=== PATIENT | male | born 1965 | race Caucasian/White ===

== ENCOUNTER 2020-03-22 13:26 | Outpatient (CLI) | payer OTHER, SELFPAY ==
[~2020-03-22 13:26] MED LIST: Iopamidol 370 76% 100 ML VIAL ONE
--- NOTE | 2020-03-22 14:59 | CT ---
EXAM: CT of the chest with contrast CT of the abdomen and pelvis with contrast HISTORY: Anal cancer COMPARISON: 05/20/2016 TECHNIQUE: 1. Multiple contiguous axial images were obtained in a CT the chest with contrast. Coronal and sagitt al reformats were performed. 2. Multiple contiguous axial images were obtained and a CT of the abdomen and pelvis with contrast. O ral contrast was administered. Coronal and sagittal reformats were performed. FINDINGS: CT CHEST: HEART: Normal in size without focal cardiac abnormality MEDIASTINUM: No hilar or mediastinal lymphadenopathy. LUNGS: No focal infiltrates, nodules, or masses. PLEURAL SPACE: No pneumothorax or pleural effusion. CHEST WALL SOFT TISSUES: There are prominent bilateral axillary lymph nodes measuring up to 2.[address] ABDOMEN/PELVIS: ABDOMEN: LIVER: within normal limits. BILE DUCTS: Normal caliber. GALLBLADDER: No calcified gallstones. Normal caliber wall. PANCREAS: within normal limits. SPLEEN: within normal limits. ADRENALS: within normal limits. KIDNEYS: Nonobstructing right renal calcifications measuring up to 3 mm in size. PELVIS: REPRODUCTIVE ORGANS: No pelvic masses. URETERS: within normal limits. BLADDER: within normal limits. PERITONEUM: No ascites or free air, no fluid collection. BOWEL: Normal caliber. Normal appendix. Air is seen in the perirectal soft tissues. This appears to b e slightly posterior to the trajectory of the rectum and anus. MESENTERY AND RETROPERITONEUM: No enlarged mesenteric or retroperitoneal lymph nodes. VESSELS: Normal. ABDOMINAL WALL: 3.5 cm left inguinal hernia containing sigmoid colon. There are prominent inguinal ly mph nodes measuring up to 3.2 cm in size. The patient appears to have a penile piercing. OSSEOUS STRUCTURES: Degenerative changes in the spine. IMPRESSION: 1. Nonspecific prominent axillary and inguinal lymph nodes 2. Left inguinal hernia 3. Nonobstructing right renal calcifications 4. Questionable air in the perianal soft tissues that may be outside of the enteric canal.
== END 2020-03-22 13:27 | disposition home or self-care (01) ==
LOC: BICCT 13:26
PROVIDERS: ATTEND Internal Medicine Hematology & Oncology
DX: C21.1 Malignant neoplasm of anal canal (principal); K40.90 Unilateral inguinal hernia, without obstruction or gangrene, not specified as recurrent; N20.0 Calculus of kidney
CPT/HCPCS: 71260; 74177

== ENCOUNTER 2020-04-05 04:53 | Outpatient (CLI) | payer OTHER, SELFPAY ==
[2020-04-05 14:43] LABS: #Basophils 0.1 thou/uL (0.0-0.2); #Eosinphils 0.5 thou/uL (0.0-0.7); #Lymphocytes 3.8 thou/uL (1.20-3.40); #Monocytes 1.3 thou/uL (0.11-0.59); #Neutrophils 9.4 thou/uL (1.40-6.50); %Eosinophils 3.2 % (0.0-10.0); %Lymphocytes 25.2 % (21.0-51.0); %Monocytes 8.4 % (0.0-10.0); %Neutrophils 62.3 % (42.0-75.0); Hemoglobin 10.4 g/dL (14.0-18.0); Mean Corpuscular HGB CONC 31.9 g/dL (32.0-36.0); Mean Corpuscular Hemoglobin 26.2 pg (27.0-31.0); Mean Corpuscular Volume 82.1 fL (78.0-98.0); Platelet Count 619 thou/uL (130-400); RBC Distribution Width 13.9 % (11.5-14.5); Red Blood Cell (RBC) Count 3.97 mill/uL (4.70-6.10); White Blood Cell (WBC) Count 15.2 thou/uL (4.8-10.8)
[2020-04-05 15:35] LABS: Anion Gap 16 mmol/L (10-20); BUN (Urea Nitrogen) 18 mg/dL (8.4-25.7); Calc. Creatinine Clearance 0 mL/min (70-130); Calcium 9.3 mg/dL (7.8-10.44); Carbon Dioxide 25 mmol/L (22-29); Chloride 101 mmol/L (98-107); Estimated GFR-MDRD 73; Glucose 99 mg/dL (70-105); Potassium 4.7 mmol/L (3.5-5.1); Sodium 137 mmol/L (136-145)
[2020-04-06 14:01] LABS: SARS-CoV-2 MS2 Positive; SARS-CoV-2 N Gene Negative; SARS-CoV-2 S Gene Negative; SARS-CoV-2 orf1ab Negative
== END 2020-04-05 04:54 | disposition home or self-care (01) ==
LOC: LABBT 04:53
PROVIDERS: ATTEND Surgery
DX: Z01.812 Encounter for preprocedural laboratory examination (principal); Z11.59 Encounter for screening for other viral diseases; C21.0 Malignant neoplasm of anus, unspecified; K40.90 Unilateral inguinal hernia, without obstruction or gangrene, not specified as recurrent
CPT/HCPCS: 80048; 85025; 87635; U0003

== ENCOUNTER 2020-04-08 10:06 | Day surgery (SDC) | payer SELFPAY ==
[2020-04-02 11:54] VITALS: BMI 26.4
[2020-04-08] MEDS ORDERED: Bupivacaine 0.25% HCL 30 ML VIAL ONE ×2 (10:49→13:24)
[2020-04-08] MEDS ORDERED: Lidocaine 1% w/Epinephrine 1:100K 20 ML VIAL ONE (10:49)
[2020-04-08] MEDS ORDERED: Sodium Chloride 0.9% 0 ML ONE (10:49)
[2020-04-08] MEDS ORDERED: Acetaminophen 500 MG TAB ONE (11:01)
[2020-04-08] MEDS ORDERED: Midazolam HCl 2 mg/2 ml Vial ONE (11:45)
[2020-04-08] MEDS ORDERED: Propofol 500 MG/50 ML VIAL ONE (11:52)
[2020-04-08] MEDS ORDERED: Fentanyl 100 MCG/2 ML VIAL ONE ×2 (11:52→12:27)
[2020-04-08] MEDS ORDERED: Rocuronium Bromide 10 MG/ML (10ML VIAL) ONE (12:06)
[2020-04-08] MEDS ORDERED: Ketorolac Tromethamine 30 MG/ML VIAL ONE (12:06)
[2020-04-08] MEDS ORDERED: PROPOFOL 200 MG/20 ML VIAL ONE (12:06)
[2020-04-08] MEDS ORDERED: Glycopyrrolate 0.2 MG/ML 5 ML SYRINGE ONE (12:06)
[2020-04-08] MEDS ORDERED: PHENYLEPHRINE-NS 100 MCG/ML 10 ML SYRINGE ONE (12:06)
[2020-04-08] MEDS ORDERED: Dexamethasone 20 MG/5 ML VIAL ONE (12:06)
[2020-04-08] MEDS ORDERED: Ondansetron PF 4 MG/2 ML Vial ONE (12:06)
[2020-04-08] MEDS ORDERED: Lidocaine 1% PF 5 ML VIAL ONE (12:06)
--- NOTE | 2020-04-08 14:22 | RAD ---
XR Chest 1 View Portable HISTORY: Mediport placement, anal cancer FINDINGS: The heart size is normal. There is a left subclavian Port-A-Cath with tip in the projection of the SVC. The lungs are well expanded without focal areas of consolidation, pneumothorax or pleural effusions. IMPRESSION: No radiographic evidence of acute cardiopulmonary process.
--- NOTE | 2020-04-09 16:22 | PDOC.OP ---
Operative Note - Operative Note Operative Note: PROCEDURE: Left subclavian MediPort placement with fluoroscopic guidance, left inguinal hernia repair with mesh, right axillary lymph node FNA with ultrasound guidance DATE OF PROCEDURE: 04/08/2020 SURGEON: Hernando Kniney M.D. PREOPERATIVE DIAGNOSIS: Anal cancer, left inguinal hernia, and axillary lymphadenopathy POSTOPERATIVE DIAGNOSIS: Anal cancer, left inguinal hernia, and axillary lymphadenopathy HISTORY: Patient has been diagnosed with anal cancer. Chemotherapy has been recommended and a Mediport has been requested for this. He was noted on preoperative imaging to have a left inguinal hernia with sigmoid colon in the hernia sac. This would be in the radiation field so repair of the hernia was recommended as well. In addition, he has enlarged lymph nodes in both axillae. Biopsy was recommended for diagnostic and staging purposes. OPERATIVE PROCEDURE IN DETAIL: After informed consent was obtained and appropriate preoperative antibiotics administered, the patient was taken to the operating room and placed in supine position and monitored anesthesia care was administered. The patient was then placed in Trendelenburg position and the subclavian vein accessed easily on the first attempt with excellent flow of dark venous non-pulsatile blood. A wire threaded easily and was confirmed to be in the superior vena cava by fluoroscopy. Additional local anesthesia was infused to the skin and subcutaneous tissues lateral and inferior to the access site. The skin incision was extended from the wire laterally and a subcutaneous pocket developed inferiorly. A Mediport was obtained and confirmed to fit in the subcutaneous pocket. This was secured inferiorly to the pectoralis fascia with a Prolene suture, which was clamped, but not tied. The dilator and sheath were then placed over the wire and the dilator and wire removed leaving the sheath in place. The clamped MediPort tubing was tunneled through the sheath, which was then split and removed leaving the MediPort tubing in place. The tubing was adjusted until the tip was confirmed by fluoroscopy to be in the superior vena cava just above the atrium. The tubing was clamped at the skin level and cut and the tubing secured to the port, which was then placed in the subcutaneous pocket. The previously placed suture was secured and two additional sutures were placed to fix the port in place within the pocket. The port was aspirated with the Morton needle and had excellent flow of dark venous non-pulsatile blood and easily flushed without resistance. The subcutaneous tissues were closed with a running Monocryl suture , following which the skin was closed with a running subcuticular Monocryl suture. Dermabond dressings were placed and the hub was again accessed through the skin and confirmed to easily aspirate and easily flush. The course of the catheter was confirmed by fluoroscopy to be smooth with the tip appropriately located in the superior vena cava. Attention was then turned to repair of the left inguinal hernia. The inguinal area was prepped and draped in the standard sterile fashion and local anesthesia was infused to the skin and subcutaneous tissues overlying the inguinal canal. Although the hernia was unable to be reduced preoperatively, once the patient was under general anesthesia it was able to be reduced. An oblique skin incision was made in the direction of the skin crease. Dissection was carried down to the external oblique aponeurosis which was carefully incised in the direction of its fibers through the enlarged external ring. The aponeurosis was mobilized off the underlying structures. The ilioinguinal nerve was unable to be definitively identified. The patient had significant scarring in his inguinal canal, with a hernia sac densely adherent to the underside of the external oblique aponeurosis, and it was felt that the nerve was likely attenuated by the chronic hernia and obscured by scar tissue. There was a small nerve located somewhat more laterally and medially in the inguinal canal than is usual for the course of the ilioinguinal nerve which was felt to likely be the nerve. This was carefully avoided for the remainder of the case. The hernia sac was carefully dissected free of the overlying external oblique aponeurosis and the inguinal cord was mobilized at the level of the pubic tubercle. The cremasteric muscles were divided and the cord contents and floor of the canal were carefully examined. The hernia sac was confirmed to be originating from the floor of the inguinal canal, medial to the inguinal cord. The inguinal cord contents were carefully examined to ensure that no indirect hernia sac was present, and the peritoneal reflection identified in the normal location, excluding the possibility of an indirect hernia. An appropriately sized Perfix plug was then placed into the direct defect. This was tacked down to the internal oblique in a couple of locations. The patch was then secured to the pubic tubercle inferiorly, to the shelving edge of the inguinal ligament laterally, and secured at intervals to the internal oblique medially. A keyhole slit was created and placed around the inguinal cord contents and secured, and the ends secured to each other. The operative site was irrigated and hemostasis verified. Local anesthesia was infused into the muscles of the internal oblique medially. An On-Q pain pump was tunneled into the inguinal canal and secured with a dressing. The external oblique aponeurosis was then closed with 2-0 Vicryl suture, taking care not to pull up any of the underlying cord contents or the On-Q pain pump catheter into the closure, and additional local anesthesia infused into the inguinal canal. The remainder of the local was infused into the subcutaneous tissues circumferentially and to the skin. Angela's fascia was reapproximated with 3-0 Monocryl sutures and the skin was closed with 4-0 subcuticular Monocryl sutures. Dermabond dressings were placed. Attention was then turned to the axillary lymph node biopsy. The right axillary lymph node was more superficial in location and easier to palpate. This was identified under an ultrasound probe and stabilized. The skin medial to the lymph node was prepped with alcohol and local anesthesia infused. 3 passes were made with a needle into the enlarged lymph node and the aspirated contents sent in CytoLyt. The lymph node was in too close proximity to the surrounding vessels for core biopsy to be performed. The patient was taken back to the recovery room in good condition. Estimated blood loss was minimal. There were no complications. Specimen is right axillary lymph node FNA for cytology.
== END 2020-04-08 15:45 | disposition home or self-care (01) ==
LOC: SDC 10:06
PROVIDERS: ATTEND Surgery
PROC: 07953ZX Drainage of Right Axillary Lymphatic, Percutaneous Approach, Diagnostic (ICD-10-PCS; principal; 2020-04-08)
PROC: 0YU60JZ Supplement Left Inguinal Region with Synthetic Substitute, Open Approach (ICD-10-PCS; principal; 2020-04-08)
PROC: 0JH60WZ Insertion of Totally Implantable Vascular Access Device into Chest Subcutaneous Tissue and Fascia, Open Approach (ICD-10-PCS; principal; 2020-04-08)
PROC: B518ZZA Fluoroscopy of Superior Vena Cava, Guidance (ICD-10-PCS; principal; 2020-04-08)
PROC: 02HV33Z Insertion of Infusion Device into Superior Vena Cava, Percutaneous Approach (ICD-10-PCS; principal; 2020-04-08)
DX: C21.0 Malignant neoplasm of anus, unspecified (principal); K40.30 Unilateral inguinal hernia, with obstruction, without gangrene, not specified as recurrent; R59.0 Localized enlarged lymph nodes; M19.90 Unspecified osteoarthritis, unspecified site; K59.09 Other constipation; F17.210 Nicotine dependence, cigarettes, uncomplicated
CPT/HCPCS: 71045; 88307; 88341; 88342; C1781; C1788; J0690; J1100; J1642; J1885; J2250; J2405; J2704; J3010; S0020

== ENCOUNTER 2020-06-14 10:02 | Day surgery (SDC) | payer OTHER ==
[~2020-06-14 10:02] MED LIST changes: -Iopamidol 370 76% 100 ML VIAL ONE; +MITOMYCIN IV SCH; +Palonosetron HCl 0.25 MG in Sodium Chloride 0.9% 50 ML IVPB SCH; +SODIUM CHLORIDE 0.9% IV SCH
[2020-06-14] MEDS ORDERED: Sodium Chloride 0.9% 20 ML ONE (12:30)
[2020-06-14 13:02] VITALS: BP 121/68; TEMP 98.2
== END 2020-06-14 14:35 | disposition home or self-care (01) ==
LOC: ONC/OP 10:02
PROVIDERS: ATTEND Internal Medicine Hematology & Oncology
DX: Z51.11 Encounter for antineoplastic chemotherapy (principal); C21.1 Malignant neoplasm of anal canal
CPT/HCPCS: 96375; 96413; 96416; J1642; J2469; J7030; J9280